=== PATIENT | female | born 1990 | race Caucasian/White ===

== ENCOUNTER 2020-11-12 18:34 | Inpatient (IN) ==
[2020-11-12] MEDS ORDERED: Naloxone 0.4 MG/ML INJ IVP PRN (22:28)
[2020-11-12] MEDS ORDERED: *HR* OxyCODONE/APAP 10/325 TABLET PO PRN (23:45)
[2020-11-13] MEDS ORDERED: *HR* LORazepam 2 MG/ML VIAL IVP ONE (01:36)
[2020-11-13 01:44] LABS: Basophils # 0.1 K/mcL (0.0-0.2); Basophils % 0.4 %; Eosinophils % 0.1 %; Hematocrit 38.2 % (35.3-44.9); Hemoglobin 12.6 g/dL (11.5-15.4); Immature Granulocytes % 0.3 % (0-4); Lymphocytes # 2.3 K/mcL (0.6-4.6); Lymphocytes % 14.5 %; Mean Corpuscular Hemoglobin 29.5 pg (28.0-33.3); Mean Corpuscular Volume 89.5 fL (83.0-100.0); Mean Platelet Volume 8.7 fL (9.4-12.4); Monocytes # 1.3 K/mcL (0.0-1.3); Monocytes % 8.1 %; Neutrophils # 12.2 K/mcL (1.6-8.9); Platelet Count 310 K/mcL (140-400); Red Blood Count 4.27 M/mcL (3.82-4.97); Red Cell Distribution Width 13.2 % (11.5-14.5); Segmented Neutrophils % 76.6 %
[2020-11-13 02:01] LABS: BUN/Creatinine Ratio 16 (6-26); Blood Urea Nitrogen 12 mg/dL (6-20); Calcium 8.4 mg/dL (8.6-10.3); Carbon Dioxide 26 mEq/L (23-29); Chloride 108 mEq/L (98-107); Glucose 125 mg/dL (70-105); Osmolality,Calculated 289 (280-300); Potassium 3.7 mEq/L (3.5-5.1); Sodium 139 mEq/L (136-145); eGFR For African Americans > 60 (> 60); eGFR For Non-African Americans > 60 (> 60)
[2020-11-13] MEDS: *HR* OxyCODONE/APAP 10/325 TABLET PO PRN ×3 (07:45→19:51)
[2020-11-13] MEDS: *HR* LORazepam 2 MG/ML VIAL IVP PRN ×3 (07:47→20:25)
[2020-11-13 10:13] LABS: Phosphorous 2.9 mg/dL (2.7-4.5)
[2020-11-13] MEDS: Morphine Sulfate 2 MG/ML SYRINGE IVP PRN ×3 (11:20→22:18)
[2020-11-13] MEDS ORDERED: *HR* Heparin 5,000 UNIT/ML VIAL SQ SCH (18:00)
[2020-11-14 05:24] LABS: Basophils # 0.1 K/mcL (0.0-0.2); Basophils % 0.6 %; Eosinophils # 0.3 K/mcL (0.0-0.6); Eosinophils % 2.2 %; Hematocrit 39.3 % (35.3-44.9); Immature Granulocytes % 0.3 % (0-4); Lymphocytes # 3.5 K/mcL (0.6-4.6); Mean Corpuscular HGB Conc 33.1 g/dL (31.6-35.5); Mean Corpuscular Hemoglobin 29.3 pg (28.0-33.3); Mean Corpuscular Volume 88.5 fL (83.0-100.0); Mean Platelet Volume 8.8 fL (9.4-12.4); Monocytes # 1.2 K/mcL (0.0-1.3); Monocytes % 10.5 %; Neutrophils # 6.7 K/mcL (1.6-8.9); Platelet Count 334 K/mcL (140-400); Red Blood Count 4.44 M/mcL (3.82-4.97); Red Cell Distribution Width 13.1 % (11.5-14.5); Segmented Neutrophils % 56.4 %; White Blood Count 11.8 K/mcL (4.3-11.1)
[2020-11-14 05:41] LABS: BUN/Creatinine Ratio 20 (6-26); Blood Urea Nitrogen 14 mg/dL (6-20); Calcium 8.7 mg/dL (8.6-10.3); Carbon Dioxide 24 mEq/L (23-29); Chloride 109 mEq/L (98-107); Glucose 100 mg/dL (70-105); Osmolality,Calculated 287 (280-300); Potassium 4.4 mEq/L (3.5-5.1); Sodium 138 mEq/L (136-145); eGFR For African Americans > 60 (> 60); eGFR For Non-African Americans > 60 (> 60)
[2020-11-14] MEDS: Morphine Sulfate 2 MG/ML SYRINGE IVP PRN ×2 (05:43→10:23)
[2020-11-14] MEDS: *HR* LORazepam 2 MG/ML VIAL IVP PRN ×4 (10:31→19:49)
[2020-11-14] MEDS: *HR* OxyCODONE/APAP 10/325 TABLET PO PRN (13:20)
[2020-11-14] MEDS ORDERED: Morphine Sulfate 2 MG/ML SYRINGE IVP PRN (15:14)
[2020-11-14] MEDS: Nicotine 21 MG PATCH.TD24 TD SCH (15:58)
[2020-11-15] MEDS: *HR* LORazepam 2 MG/ML VIAL IVP PRN ×3 (03:36→12:11)
[2020-11-15] MEDS: Nicotine 21 MG PATCH.TD24 TD SCH (07:56)
[2020-11-15 08:06] VITALS: BP 120/82
== END 2020-11-15 13:08 | disposition home or self-care (01) | DRG 135 ==
LOC: 2NENU
PROVIDERS: ADMIT General Practice; ATTEND General Practice